=== PATIENT | female | born 1960 | race Caucasian/White ===

== ENCOUNTER 2016-09-14 07:01 | Observation (INO) | payer OTHER ==
[~2016-09-14] VITALS: Ht 165.1 cm; Wt 84.5 kg
[2016-09-14 12:36] LABS: BASOPHILS 0.1 % (0-2); EOSINOPHILS 0.2 % (0-7); HEMATOCRIT 40.1 % (36.0-48.0); IMMATURE GRANULOCYTES 0.1 % (0-5); LYMPHOCYTES 28.4 % (15-50); MCH 28.3 pg (26.0-34.0); MCHC 32.4 g/dL (31.0-37.0); MCV 87.4 fL (80.0-100.0); MEAN PLATELET VOLUME 9.9 fL (7.4-10.4); NEUTROPHILS 66.2 % (40-80); PLATELET COUNT 227 10x3/uL (130-400); RBC 4.59 10x6/uL (4.00-5.40); RDW 13.5 % (11.5-14.5); WBC 8.3 10x3/uL (4.8-10.8)
[2016-09-14 13:18] LABS: ALKALINE PHOSPHATASE 104 U/L (46-116); ALT (SGPT) 19 U/L (10-68); BILIRUBIN - TOTAL 0.67 mg/dL (0.2-1.3); CALC OSMOLALITY 282 mosm/kg (275-300); CALCIUM 9.8 mg/dL (8.5-10.1); CARBON DIOXIDE 30.5 mmol/L (21.0-32.0); CHLORIDE - SERUM 105 mmol/L (98-107); CREATININE - SERUM 0.6 mg/dL (0.6-1.3); GLUCOSE 90 mg/dL (74-106); POTASSIUM - SERUM 4.2 mmol/L (3.5-5.1); PROTEIN - SERUM 7.7 g/dL (6.4-8.2); SODIUM 142 mmol/L (136-145); UREA NITROGEN 12 mg/dL (7-18); eGFR NON AFRICAN AMERICAN > 90 mL/min (90-120)
--- NOTE | 2016-09-14 14:15 | NUR ---
PT TO ROOM 2218 FROM ER VIA WHEELCHAIR.PT WITHOUT DISTRESS. ORIENTATION TO ROOM.CALL LIGHT IN REACH.
[2016-09-14 16:38] VITALS: BP 148/86; Ht 165.1 cm; Wt 84.5 kg
--- NOTE | 2016-09-14 18:32 | NUR ---
REMAINS WITHOUT NEEDS.HEADACHE BETTER.CONT PLAN OF CARE
--- NOTE | 2016-09-14 20:00 | NUR ---
ASSESSMENT PER FLOWSHEET. DAUGHTER AT BEDSIDE. IV PATENT LEFT FOREARM OF NS AT 75CC'S/HR SITE CLEAR DENIES NEEDS. SR UP X2 CALL LIGHT WITHIN REACH. UP AD HUGO TO BR VOIDS WELL.
[2016-09-14 20:15] VITALS: BP 105/64
--- NOTE | 2016-09-14 21:30 | NUR ---
REQUESTING FRESH WATER. FRESH ICE WATER GIVEN TO PATIENT DENIES ANY OTHER NEEDS AT THIS TIME.
--- NOTE | 2016-09-14 22:33 | NUR ---
RESTING QUIETLY NEURO CHECKS WNL NO DEFICITS.
[2016-09-14 23:38] VITALS: BP 110/60
[2016-09-15 06:30] VITALS: BP 137/60
--- NOTE | 2016-09-15 07:25 | NUR ---
ASSESSMENT PER FLOW SHEET.PT WITHOUT DISTRESS.PAIN 8/10 ON PAIN SCAL,HEADACHE.MEDS ORDERED.
[2016-09-15 07:48] VITALS: BP 119/63
--- NOTE | 2016-09-15 11:48 | NUR ---
REMAINS WITHOUT NEEDS,WITHOUT DISTRESS.PAIN CONTROLLED
[2016-09-15 12:13] VITALS: BP 111/63
[2016-09-15 15:35] VITALS: BP 146/93
--- NOTE | 2016-09-15 18:09 | NUR ---
HEADACHE STILL CONTROLLED WITH MORPHINE.
[2016-09-15 20:00] VITALS: BP 112/57
--- NOTE | 2016-09-15 20:00 | NUR ---
ASSESSMENT PER FLOWSHEET. IV PATENT LEFT FOREARM SALINE LOCKED. SITE CLEAR. DENIES ANY PAIN OR DISCOMFORT AT THIS TIME. UP AD HUGO TO BR VOIDS FREELY.
--- NOTE | 2016-09-15 22:00 | NUR ---
RESTING IN BED DENIES HEADACHE AT THIS TIME STATES MORPHINE SHOT GIVEN EARILIER HAS RELIEVED HEADACHE PAIN.
[2016-09-16] VITALS: BP 120/62
--- NOTE | 2016-09-16 00:55 | NUR ---
C/O HEADACHE PAIN RATES PAIN LEVEL #8. FIORICET TAB ONE PO GIVEN FOR PAIN CONTROL.
--- NOTE | 2016-09-16 03:00 | NUR ---
EYES CLOSED RESPIRATIONS WITH EASE AND UNLABORED.
[2016-09-16 04:00] VITALS: BP 113/71
[2016-09-16] MEDS ORDERED: ESGIC TABLET1 TAB PO (07:19)
[2016-09-16 07:38] VITALS: BP 120/67
--- NOTE | 2016-09-16 08:30 | NUR ---
ASSESMENT PER FLOW SHEET.PT WITHOUT DISTRESS.DENIES PAIN AT PRESENT.CALL LIGHT IN REACH
--- NOTE | 2016-09-16 09:52 | NUR ---
REPORTS PAIN 9/10 SCALE TO BACK AND NECK.PAIN MEDS ORDERED PER MAR
--- NOTE | 2016-09-16 10:23 | NUR ---
IV DCD WITH CATH INTACT.DISCHARGE INSTRUCTIONS,STATES UNDERSTANDING.WAITING ON RIDE FOR TRANSPORT HOME.
--- NOTE | 2016-09-16 11:53 | NUR ---
RIDE HERE.LEFT UNIT VIA WHEELCHAIR
== END 2016-09-16 11:53 | disposition home or self-care (01) ==
LOC: D.ER 07:01 → OBSVTIME 13:22 → D.MS 13:22
PROVIDERS: Emergency Medicine; ADMIT Family Medicine
DX: R51 Headache (principal); R93.0 Abnormal findings on diagnostic imaging of skull and head, not elsewhere classified; K21.9 Gastro-esophageal reflux disease without esophagitis

== ENCOUNTER 2016-10-25 06:49 | Emergency (ER) | payer OTHER ==
[2016-09-14 16:38] VITALS: BMI 31.0
[~2016-10-25 06:49] MED LIST: ESGIC TABLET1 TAB PO
[2016-10-25 07:44] LABS: BASOPHILS 0.1 % (0-2); EOSINOPHILS 1.8 % (0-7); HEMATOCRIT 37.2 % (36.0-48.0); HEMOGLOBIN 12.2 g/dL (12-16); IMMATURE GRANULOCYTES 0.3 % (0-5); LYMPHOCYTES 21.5 % (15-50); MCH 28.5 pg (26.0-34.0); MCHC 32.8 g/dL (31.0-37.0); MCV 86.9 fL (80.0-100.0); MONOCYTES 5.8 % (2-11); NEUTROPHILS 70.5 % (40-80); PLATELET COUNT 216 10x3/uL (130-400); RBC 4.28 10x6/uL (4.00-5.40); RDW 13.7 % (11.5-14.5); WBC 7.7 10x3/uL (4.8-10.8)
[2016-10-25 08:00] LABS: ALBUMIN 3.7 g/dL (3.4-5.0); ALKALINE PHOSPHATASE 100 U/L (46-116); ALT (SGPT) 14 U/L (10-68); BILIRUBIN - TOTAL 0.35 mg/dL (0.2-1.3); CALC OSMOLALITY 276 mosm/kg (275-300); CALCIUM 8.7 mg/dL (8.5-10.1); CARBON DIOXIDE 27.5 mmol/L (21.0-32.0); CHLORIDE - SERUM 104 mmol/L (98-107); CREATININE - SERUM 0.5 mg/dL (0.6-1.3); GLUCOSE 114 mg/dL (74-106); POTASSIUM - SERUM 3.5 mmol/L (3.5-5.1); PROTEIN - SERUM 7.6 g/dL (6.4-8.2); SODIUM 138 mmol/L (136-145); UREA NITROGEN 13 mg/dL (7-18); eGFR NON AFRICAN AMERICAN > 90 mL/min (90-120)
[2016-10-25 08:34] LABS: APPEARANCE CLEAR (CLEAR); BILIRUBIN NEGATIVE (NEGATIVE); COLOR STRAW (YELLOW); GLUCOSE NEGATIVE (NEGATIVE); KETONE NEGATIVE (NEGATIVE); LEUKOCYTE ESTERASE NEGATIVE (NEGATIVE); NITRITE NEGATIVE (NEGATIVE); PROTEIN NEGATIVE (NEGATIVE); UROBILINOGEN NORMAL (NORMAL)
[2016-10-25 08:37] LABS: RED CELLS - URINE 0-5 /hpf (0-5); WHITE CELLS - URINE RARE /hpf (0-5)
[2016-10-25 08:38] LABS: BACTERIA NONE SEEN /hpf (NONE SEEN); UDS - AMPHET NEGATIVE QUAL (NEGATIVE); UDS - BARB NEGATIVE QUAL (NEGATIVE); UDS - BENZO NEGATIVE QUAL (NEGATIVE); UDS - COCAINE NEGATIVE QUAL (NEGATIVE); UDS - METH NEGATIVE QUAL (NEGATIVE); UDS - OPIATE NEGATIVE QUAL (NEGATIVE); UDS - PCP NEGATIVE QUAL (NEGATIVE); UDS - THC NEGATIVE QUAL (NEGATIVE)
== END 2016-10-25 10:20 | disposition home or self-care (01) ==
LOC: D.ER 06:49
PROVIDERS: Emergency Medicine
DX: J06.9 Acute upper respiratory infection, unspecified (principal); R51 Headache

== ENCOUNTER → 2016-11-22 09:07 | Outpatient (CLI) | payer OTHER ==
[2016-09-14 16:38] VITALS: BMI 31.0
== END | disposition home or self-care (01) ==
LOC: D.MRI 09:07
DX: G43.001 Migraine without aura, not intractable, with status migrainosus (principal)